=== PATIENT | female | born 1990 | race African-American/Black ===

== ENCOUNTER 2021-08-17 09:13 | Emergency (ER) | payer MEDICAID, SELFPAY ==
[2021-08-17 10:45] LABS: #Monocytes 0.9 10x3/uL (0.0-1.1); #Neutrophils 3.8 10x3/uL (1.5-8.4); %Basophils 0.2 % (0.0-2.0); %Eosinophils 0.2 % (0.0-6.0); %Lymphocytes 21.4 % (18.0-47.0); %Monocytes 14.5 % (0.0-10.0); %Neutrophils 63.5 % (40.0-75.0); Hemoglobin 14.5 g/dL (12.0-15.5); Mean Corpuscular HGB CONC 33.7 g/dL (32.0-36.0); Mean Corpuscular Hemoglobin 31.6 pg (27.0-33.0); Mean Corpuscular Volume 93.7 fl (81.6-98.3); Platelet Count 211 10x3/uL (150-450); Red Blood Cell (RBC) Count 4.59 10x6/uL (3.90-5.03); White Blood Cell (WBC) Count 5.9 10x3/uL (3.5-10.5)
[2021-08-17 10:50] LABS: BHCG - Serum Negative (NEGATIVE); Pregs Control Background? CLEAR/WHITE (CLR/WHITE); Pregs Control Bar Appear? YES (CONTROL BAR)
[2021-08-17] MEDS ORDERED: diphenhydrAMINE 50 MG/ML VIAL ONE (10:55)
[2021-08-17] MEDS ORDERED: Acetaminophen 500 MG TAB ONE (10:56)
[2021-08-17] MEDS ORDERED: Metoclopramide HCl 10 MG/2 ML VIAL ONE (10:56)
[2021-08-17 10:59] LABS: ALT (SGPT) 32 U/L (8-55); AST (SGOT) 19 U/L (5-34); Albumin 4.1 g/dL (3.5-5.0); Alkaline Phosphatase 80 U/L (40-110); Anion Gap 12 mmol/L (10-20); BUN (Urea Nitrogen) 11 mg/dL (7.0-18.7); Bilirubin, Total 0.3 mg/dL (0.2-1.2); Calc. Creatinine Clearance 0 mL/min (70-130); Calcium 9.3 mg/dL (7.8-10.44); Carbon Dioxide 26 mmol/L (22-29); Chloride 106 mmol/L (98-107); Glucose 96 mg/dL (70-105); Potassium 3.9 mmol/L (3.5-5.1); Protein, Total 7.1 g/dL (6.0-8.3); Sodium 140 mmol/L (136-145)
== END 2021-08-17 12:45 | disposition home or self-care (01) ==
LOC: CSHERS 09:13
DX: R51.9 Headache, unspecified (principal); I10 Essential (primary) hypertension; F17.210 Nicotine dependence, cigarettes, uncomplicated
CPT/HCPCS: 36415; 80053; 84703; 85025; 96365; 96375; J1200; J2765

== ENCOUNTER 2022-11-22 15:33 | Emergency (ER) | payer SELFPAY ==
[2022-11-22] MEDS ORDERED: predniSONE 20 MG TAB ONE (16:26)
[2022-11-22] MEDS ORDERED: Ipratropium/Albuterol 3 ML NEB ONE (16:46)
== END 2022-11-22 19:08 | disposition home or self-care (01) ==
LOC: CSHERS 15:33
DX: J45.909 Unspecified asthma, uncomplicated (principal); J06.9 Acute upper respiratory infection, unspecified; I10 Essential (primary) hypertension; F17.210 Nicotine dependence, cigarettes, uncomplicated
CPT/HCPCS: 94640; 94760; J7512; J7620